=== PATIENT | female | born 1960 | race Caucasian/White ===

== ENCOUNTER 2023-10-01 06:57 | Outpatient (CLI) | payer OTHER, SELFPAY ==
--- NOTE | ~2023-10-01 | MR_ITS ---
EXAMINATION: MR foot LT wo con DATE: 10/01/2023 07:32 INDICATION: Stress fracture with left foot pain and swelling TECHNIQUE: Magnetic resonance imaging (MRI) of the left fore/mid foot was performed without intraveno us contrast. Sequences included sagittal T1-weighted FSE, sagittal fluid sensitive FSE STIR, coronal PD-weighted FS FSE, coronal T1-weighted FSE, axial PD-weighted FS FSE, and axial PD-weighted FSE. COMPARISON: None FINDINGS: Bone alignment is normal. There is normal bone marrow signal throughout with no stress reaction, frac ture or pathologic marrow replacing process. Mild osteoarthritis at the first metatarsophalangeal, na viculocuneiform and a few of the tarsal metatarsal and interphalangeal joints. Physiologic amount flu id in the joint spaces. Visualized portions of the flexor and extensor tendons are normal. Lisfranc l igament complex and the collateral ligament complex at the metatarsophalangeal and interphalangeal mercedes ints are normal. Minimal scattered soft tissue edema in the foot. No abscess or other abnormal fluid collections. Minimal likely age-related atrophy of the musculature of the foot. IMPRESSION: 1. Mild polyarticular osteoarthritis in the mid and forefoot. No stress reaction/fracture or other ac selene osseous abnormality. Reviewed, dictated and finalized at location B. IMPRESSION: 1. Mild polyarticular osteoarthritis in the mid and forefoot. No stress reactio n/fracture or other acute osseous abnormality.
== END 2023-10-01 06:58 ==
LOC: MICIMG 06:58
PROVIDERS: PCP Podiatrist Foot & Ankle Surgery; Visit Provider Podiatrist Foot & Ankle Surgery
DX: M19.072 Primary osteoarthritis, left ankle and foot (principal)
CPT/HCPCS: 73718